=== PATIENT | female | born 1990 | race Caucasian/White ===

== ENCOUNTER 2023-05-25 11:38 | Emergency (ER) | payer OTHER ==
[~2023-05-25] VITALS: Ht 162.6 cm; Wt 65.0 kg
[2023-05-25 11:41] VITALS: O2SAT 99
[2023-05-25] MEDS ORDERED: TETANUS, DIPHTHERIA, PERTUSSIS VAC/PF 0.5ML (>10YR OLD) IM ONE (12:15)
[2023-05-25] MEDS ORDERED: LIDOCAINE HCL 1% 20ML VIAL (Pyxis) INJ INFIL ONE (12:15)
[2023-05-25] MEDS ORDERED: BO1 TP (12:42)
[2023-05-25 13:19] VITALS: BP 132/65; PULSE 72; RESP 16; TEMP 98.5
== END 2023-05-25 13:24 | disposition home or self-care (01) ==
LOC: ER 11:38
DX: S51.812A Laceration without foreign body of left forearm, initial encounter (principal); Z98.890 Other specified postprocedural states; X58.XXXA Exposure to other specified factors, initial encounter; Y93.89 Activity, other specified; Y92.89 Other specified places as the place of occurrence of the external cause; Y99.8 Other external cause status
CPT/HCPCS: 99283; 90715; 12002; 90471; J3490